=== PATIENT | male | born 1945 | race Caucasian/White ===

== ENCOUNTER 2017-11-30 14:24 | Inpatient (IN) | payer MEDICARE ==
[2017-11-30 15:44] LABS: ABS Basophils 0.1 10^3/ul (0-0.2); ABS Eosinophils 0.1 10^3/ul (0-0.6); ABS Lymphocytes 1.2 10^3/ul (1.0-4.8); ABS Monocytes 0.8 10^3/ul (0-0.8); ABS Neutrophils 5.2 10^3/ul (1.5-7.7); ABS Nucleated RBC 0 10^3/ul; Eosinophil % 1.4 % (0-6); Hematocrit 40 % (42-52); Hemoglobin 13.4 g/dl (14.0-18.0); Lymphocyte % 16.8 % (25-47); Mean Corpuscular HGB Conc 34 g/dl (31-36); Mean Corpuscular Hemoglobin 29 pg (27-31); Mean Corpuscular Volume 86 fL (80-94); Mean Platelet Volume 9 um3 (7.4-10.4); Nucleated Red Blood Cells % 0; Platelet Count 152 10^3/ul (150-450); Red Blood Count 4.65 10^6/ul (4.0-5.4); Red Cell Distribution Width 14 % (10.5-15); White Blood Count 7.4 10^3/ul (3.5-10.8)
--- NOTE | 2017-11-30 16:07 | RAD ---
HISTORY: Chest pain COMPARISONS: None VIEWS: 1: frontal portable view of the chest at 3:05 PM FINDINGS: LINES AND TUBES: None. CARDIOMEDIASTINAL SILHOUETTE: The cardiomediastinal silhouette is normal for portable technique. PLEURA: The costophrenic angles are sharp. No pleural abnormalities are noted. LUNG PARENCHYMA: The lungs are clear. ABDOMEN: The upper abdomen is clear. There is no subphrenic gas. BONES AND SOFT TISSUES: No bone or soft tissue abnormalities are noted. IMPRESSION: NO ACTIVE CARDIOPULMONARY DISEASE.
[2017-11-30 16:11] LABS: EGFR Non-African American 78.2 (>60)
[2017-11-30] MEDS ORDERED: Aspirin Low Dose CHEW TAB* 81 MG PO ONE (16:14)
[2017-11-30] MEDS ORDERED: Heparin for STEMI(*) 5,000 UNITS/ML 1 ML VIAL IV ONE (16:14)
[2017-11-30 16:33] LABS: Urine Appearance Clear; Urine Blood Negative (Negative); Urine Color Straw; Urine Ketones Negative (Negative); Urine Protein Negative (Negative); Urine Specific Gravity 1.004 (1.010-1.030); Urine Urobilinogen Negative (Negative)
[2017-11-30] MEDS ORDERED: Acetaminophen TAB* 325 MG PO PRN (16:37)
[2017-11-30] MEDS ORDERED: Nitroglycerin 0.2 MG/HR PATCH* (5 MG) TRANSDERM ONE (16:44)
[2017-11-30] MEDS ORDERED: Heparin DRIP 25,000 UNITS(*) 25,000 UNITS/500 ML BAG IVPB SCH (16:45)
[2017-11-30] MEDS ORDERED: Nitroglycerin TAB 0.4 MG* 0.4 MG TAB SL PRN (16:49)
[2017-11-30] MEDS ORDERED: Heparin VIAL(*) 5000 UNITS/ML VIAL (FIVE THOUSAND) IV SCH (17:00)
[2017-11-30] MEDS ORDERED: Atorvastatin* 40 MG TAB PO SCH (17:00)
--- NOTE | 2017-11-30 17:44 | ED ---
Stephanie Sheikh Nilda, scribed for Lucian Mcarthur MD on 11/30/17 at 1526 . HPI Chest Pain - HPI Summary HPI Summary: This patient is a 72 year old M presenting to [facility] accompanied by with a chief complaint of constant diffuse chest pain (pressure) for the past two days. The patient rates the pain 6/10 in severity. Symptoms aggravated and alleviated by nothing. Patient denies SOB, N/V, near syncope, and abd pain. Patient states current medications for HTN and Glaucoma. PMHx includes NV (4 years ago, treated with stent in [place]). Patient states this episode of CP is not similar to symptoms from NV in 2013. He notes CP during NV felt more like heart burn. - History of Current Complaint Chief Complaint: EDChestPainROMI Time Seen by Provider: 11/30/17 15:07 Hx Obtained From: Patient Onset/Duration: Started Days Ago, Still Present Timing: Constant Current Severity: Moderate Pain Intensity: 6 Pain Scale Used: 0-10 Numeric Chest Pain Location: Diffuse Chest Pain Radiates: No Character: Pressure/Squeezing Aggravating Factor(s): Nothing Alleviating Factor(s): Nothing Associated Signs and Symptoms: Positive: Other: - denies SOB, N/V, near syncopal feelings, and abd pain - Allergy/Home Medications Allergies/Adverse Reactions: Allergies Allergy/AdvReac Type Severity Reaction Status Date / Time piroxicam Allergy See Comment Verified 11/30/17 17:08 Home Medications: Home Medications Aspirin EC Low Dose* [Ecotrin EC Low Dose 81 MG*] 81 mg PO DAILY 11/30/17 [ History Confirmed 11/30/17] Carvedilol TAB* [Coreg TAB*] 3.125 mg PO BID 11/30/17 [History Confirmed ] Cholecalciferol TAB* [Vitamin D TAB*] 400 unit PO DAILY 11/30/17 [History Confirmed 11/30/17] Dorzolamide/Timolol OPTH (NF) [Cosopt (NF)] 1 drop BOTH EYES BID 11/30/17 [ History Confirmed 11/30/17] Latanoprost 0.005% OPTH (NF) [Xalatan 0.005% OPTH (NF)] 1 drop BOTH EYES BEDTIME 11/30/17 [History Confirmed 11/30/17] PMH/Surg Hx/FS Hx/Imm Hx Endocrine/Hematology History: Denies: Hx Diabetes, Hx Thyroid Disease Cardiovascular History: Reports: Hx Hypertension, Hx Myocardial Infarction Respiratory History: Denies: Hx Asthma, Hx Chronic Obstructive Pulmonary Disease (COPD) GI History: Denies: Hx Ulcer Opthamlomology History: Reports: Hx Glaucoma - Surgical History Surgery Procedure, Year, and Place: cataract surgery Infectious Disease History: No Infectious Disease History: Denies: Hx Hepatitis, Hx Human Immunodeficiency Virus (HIV), Traveled Outside the [place] in Last 30 Days - Family History Known Family History: Positive: Cardiac Disease - NV - Social History Lives: With Family Alcohol Use: Occasionally Substance Use Type: Reports: None Smoking Status (MU): Never Smoked Tobacco Review of Systems Positive: Chest Pain Negative: Shortness Of Breath Negative: Abdominal Pain, Vomiting, Nausea Negative: Syncope All Other Systems Reviewed And Are Negative: Yes Physical Exam - Summary Physical Exam Summary: VITAL SIGNS: Reviewed. GENERAL: Patient is a well-developed and nourished male who is lying comfortable in the stretcher. Patient is not in any acute respiratory distress. HEAD AND FACE: No signs of trauma. No ecchymosis, hematomas or skull depressions. No sinus tenderness. EYES: PERRLA, EOMI x 2, No injected conjunctiva, no nystagmus. EARS: Hearing grossly intact. Ear canals and tympanic membranes are within normal limits. MOUTH: Oropharynx within normal limits. NECK: Supple, trachea is midline, no adenopathy, no JVD, no carotid bruit, no c- spine tenderness, neck with full ROM. CHEST: Symmetric, no tenderness at palpation LUNGS: Clear to auscultation bilaterally. No wheezing or crackles. CVS: Regular rate and rhythm, S1 and S2 present, no murmurs or gallops appreciated. ABDOMEN: Soft, non-tender. No signs of distention. No rebound no guarding, and no masses palpated. Bowel sounds are normal. EXTREMITIES: FROM in all major joints, no edema, no cyanosis or clubbing. NEURO: Alert and oriented x 3. No acute neurological deficits. Speech is normal and follows commands. SKIN: Dry and warm Triage Information Reviewed: Yes Vital Signs On Initial Exam: Initial Vitals Temp Pulse Resp BP Pulse Ox 98.7 F 73 18 147/81 97 11/30/17 14:27 11/30/17 14:27 11/30/17 14:27 11/30/17 14:27 11/30/17 14:27 Vital Signs Reviewed: Yes Diagnostics - Vital Signs Vital Signs Temp Pulse Resp BP Pulse Ox 11/30/17 14:27 98.7 F 73 18 147/81 97 - Laboratory Lab Results: Lab Results 11/30/17 11/30/17 11/30/17 Range/Units 15:37 15:37 15:37 WBC (3.5-10.8) 10^3/ul RBC (4.0-5.4) 10^6/ul Hgb (14.0-18.0) g/dl Hct (42-52) % MCV (80-94) fL MCH (27-31) pg MCHC (31-36) g/dl RDW (10.5-15) % Plt Count (150-450) 10^3/ul MPV (7.4-10.4) um3 Neut % (Auto) (38-83) % Lymph % (Auto) (25-47) % Cassia % (Auto) (1-9) % Eos % (Auto) (0-6) % Baso % (Auto) (0-2) % Absolute Neuts (auto) (1.5-7.7) 10^3/ul Absolute Lymphs (auto) (1.0-4.8) 10^3/ul Absolute Monos (auto) (0-0.8) 10^3/ul Absolute Eos (auto) (0-0.6) 10^3/ul Absolute Basos (auto) (0-0.2) 10^3/ul Absolute Nucleated RBC 10^3/ul Nucleated RBC % APTT 33.3 (26.0-36.3) seconds Sodium 137 (133-145) mmol/L Potassium 4.4 (3.5-5.0) mmol/L Chloride 106 (101-111) mmol/L Carbon Dioxide 27 (22-32) mmol/L Anion Gap 4 (2-11) mmol/L BUN 18 (6-24) mg/dL Creatinine 0.95 (0.67-1.17) mg/dL Est GFR ( Amer) 100.5 (>60) Est GFR (Non-Af Amer) 78.2 (>60) BUN/Creatinine Ratio 18.9 (8-20) Glucose 92 (70-100) mg/dL Calcium 9.1 (8.6-10.3) mg/dL Magnesium 2.4 (1.9-2.7) mg/dL Total Bilirubin 0.80 (0.2-1.0) mg/dL AST 32 (13-39) U/L ALT 27 (7-52) U/L Alkaline Phosphatase 54 (34-104) U/L Total Creatine Kinase 249 H (10-223) U/L CK-MB (CK-2) 14.5 H (0.6-6.3) ng/mL Troponin I 0.76 H* (<0.04) ng/mL B-Natriuretic Peptide 65 ( - 100) pg/mL Total Protein 7.0 (6.4-8.9) g/dL Albumin 3.9 (3.2-5.2) g/dL Globulin 3.1 (2-4) g/dL Albumin/Globulin Ratio 1.3 (1-3) TSH 1.21 (0.34-5.60) mcIU/mL Urine Color Urine Appearance Urine pH (5-9) Ur Specific [place] (1.010-1.030) Urine Protein (Negative) Urine Ketones (Negative) Urine Blood (Negative) Urine Nitrate (Negative) Urine Bilirubin (Negative) Urine Urobilinogen (Negative) Ur Leukocyte Esterase (Negative) Urine Glucose (Negative) 11/30/17 11/30/17 Range/Units 15:37 16:05 WBC 7.4 (3.5-10.8) 10^3/ul RBC 4.65 (4.0-5.4) 10^6/ul Hgb 13.4 L (14.0-18.0) g/dl Hct 40 L (42-52) % MCV 86 (80-94) fL MCH 29 (27-31) pg MCHC 34 (31-36) g/dl RDW 14 (10.5-15) % Plt Count 152 (150-450) 10^3/ul MPV 9 (7.4-10.4) um3 Neut % (Auto) 69.7 (38-83) % Lymph % (Auto) 16.8 L (25-47) % Cassia % (Auto) 11.3 H (1-9) % Eos % (Auto) 1.4 (0-6) % Baso % (Auto) 0.8 (0-2) % Absolute Neuts (auto) 5.2 (1.5-7.7) 10^3/ul Absolute Lymphs (auto) 1.2 (1.0-4.8) 10^3/ul Absolute Monos (auto) 0.8 (0-0.8) 10^3/ul Absolute Eos (auto) 0.1 (0-0.6) 10^3/ul Absolute Basos (auto) 0.1 (0-0.2) 10^3/ul Absolute Nucleated RBC 0 10^3/ul Nucleated RBC % 0 APTT (26.0-36.3) seconds Sodium (133-145) mmol/L Potassium (3.5-5.0) mmol/L Chloride (101-111) mmol/L Carbon Dioxide (22-32) mmol/L Anion Gap (2-11) mmol/L BUN (6-24) mg/dL Creatinine (0.67-1.17) mg/dL Est GFR ( Amer) (>60) Est GFR (Non-Af Amer) (>60) BUN/Creatinine Ratio (8-20) Glucose (70-100) mg/dL Calcium (8.6-10.3) mg/dL Magnesium (1.9-2.7) mg/dL Total Bilirubin (0.2-1.0) mg/dL AST (13-39) U/L ALT (7-52) U/L Alkaline Phosphatase (34-104) U/L Total Creatine Kinase (10-223) U/L CK-MB (CK-2) (0.6-6.3) ng/mL Troponin I (<0.04) ng/mL B-Natriuretic Peptide ( - 100) pg/mL Total Protein (6.4-8.9) g/dL Albumin (3.2-5.2) g/dL Globulin (2-4) g/dL Albumin/Globulin Ratio (1-3) TSH (0.34-5.60) mcIU/mL Urine Color Straw Urine Appearance Clear Urine pH 7.0 (5-9) Ur Specific [place] 1.004 L (1.010-1.030) Urine Protein Negative (Negative) Urine Ketones Negative (Negative) Urine Blood Negative (Negative) Urine Nitrate Negative (Negative) Urine Bilirubin Negative (Negative) Urine Urobilinogen Negative (Negative) Ur Leukocyte Esterase Negative (Negative) Urine Glucose Negative (Negative) Result Diagrams: 11/30/17 15:37 11/30/17 15:37 Lab Statement: Any lab studies that have been ordered have been reviewed, and results considered in the medical decision making process. - Radiology CXR Radiology Interpretation Completed By: Radiologist - No active cardiopulmonary disease. Dr. Mcarthur has reviewed this report. - EKG 1431 Cardiac Rate: NL EKG Rhythm: Sinus Rhythm - 74 bpm Ectopy: PVCs - multiple EKG Interpretation: no ST elevation Chest Pain Course/Dx - Course Assessment/Plan: This patient is a 72 year old M presenting to [facility] accompanied by with a chief complaint of constant diffuse chest pain ( pressure) for the past two days. The patient rates the pain 6/10 in severity. Symptoms aggravated and alleviated by nothing. Patient denies SOB, N/V, near syncope, and abd pain. Patient states current medications for HTN and Glaucoma. PMHx includes NV (4 years ago, treated with stent in [place]). Patient states this episode of CP is not similar to symptoms from NV in 2014. CP during NV felt more like heart burn. An EKG reveals NSR, 74 bpm, multiple PVCs, and no ST elevation. CXR, per radiologist, reveals no active cardiopulmonary disease. Dr. Mcarthur has reviewed this report. Tests results are without significant abnormalities except for slight anemia, CKMB is 14.5, and Trop 0.76. Urine negative for UTI. CXR with no acute pathology. EKG no ST elevations. Therefore I believe the pt has an evolving NSTEMI. Therefore he was given Heparin and aspirin and the CP has significantly subsided. I discussed the case with Dr. Blunt (hospitalist) who accepted the patient for admission. - Chest Pain Differential Diagnosis/HQI/PQRI: Acute NV, ACS, Angina, CHF, Chest Wall, GI Disease, Lower Respiratory Infection - Diagnoses Provider Diagnoses: chest pain rule out nSTEMI - Provider Notifications Discussed Care Of Patient With: Mis Blunt - Hospitalist Time Discussed With Above Provider: 16:11 Instructed by Provider To: Admit As Inpatient - Critical Care Time Critical Care Time: 30-74 min Discharge - Discharge Plan Condition: Stable Disposition: ADMITTED TO [facility] documentation as recorded by the Stephanie palacios Nilda accurately reflects the service I personally performed and the decisions made by , Lucian Mcarthur MD.
[2017-11-30 20:37] LABS: ABS Basophils 0 10^3/ul (0-0.2); ABS Eosinophils 0.1 10^3/ul (0-0.6); ABS Lymphocytes 1.7 10^3/ul (1.0-4.8); ABS Monocytes 0.8 10^3/ul (0-0.8); ABS Neutrophils 4.6 10^3/ul (1.5-7.7); ABS Nucleated RBC 0 10^3/ul; Eosinophil % 1.4 % (0-6); Hematocrit 43 % (42-52); Hemoglobin 14.3 g/dl (14.0-18.0); Lymphocyte % 23.7 % (25-47); Mean Corpuscular HGB Conc 33 g/dl (31-36); Mean Corpuscular Hemoglobin 29 pg (27-31); Mean Corpuscular Volume 87 fL (80-94); Mean Platelet Volume 10 um3 (7.4-10.4); Nucleated Red Blood Cells % 0.1; Platelet Count 163 10^3/ul (150-450); Red Blood Count 4.97 10^6/ul (4.0-5.4); Red Cell Distribution Width 14 % (10.5-15); White Blood Count 7.3 10^3/ul (3.5-10.8)
[2017-11-30 20:48] LABS: EGFR Non-African American 81.1 (>60)
--- NOTE | 2017-11-30 21:18 | HP ---
HISTORY AND PHYSICAL: DATE OF ADMISSION: 11/30/17 TIME OF ADMISSION: 4:45 p.m. CHIEF COMPLAINT: Chest pain. HISTORY OF PRESENT ILLNESS: This is a 72-year-old male with history of coronary artery disease who presents with chest tightness that began while he was snow blowing this morning. He reports having several episodes over the past 2 days of exertional chest pain that results at rest. However, this morning while he was snow blowing his driveway, he had substernal chest tightness that did not resolve on its own, so he came to the emergency department. The pain did not radiate. It was associated with some diaphoresis , but no shortness of breath, nausea, lightheadedness or dizziness. He currently has some chest pain that is much better than when he got to the emergency department. He has not received any nitroglycerin yet. PAST MEDICAL HISTORY: Hyperlipidemia, glaucoma, coronary artery disease, status post stent in 2013 in [place]. HOME MEDICATIONS: 1. Aspirin 81 mg. 2. Atorvastatin 40 mg daily. 3. Coreg 3.125 mg b.i.d. 4. Latanoprost drops in both eyes at bedtime. 5. Dorzolamide/timolol eyedrops in both eyes b.i.d. FAMILY HISTORY: His father had coronary artery disease. His brothers have coronary artery disease and his sister at age 65 of an aortic dissection. 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 He drinks 1 beer per week. REVIEW OF SYSTEMS: Positive for the above. Remaining 12-point review of systems is negative. PHYSICAL EXAMINATION GENERAL: Alert, well appearing man, in no distress. VITAL SIGNS: Temperature 98.7, heart rate 66, pulse ox 93% on room air, blood pressure 132/76. HEENT: Pupils equal, round, and reactive to light. No conjunctival injection. Moist mucosa. NECK: No JVP. No lymphadenopathy. LUNGS: Clear bilaterally. CHEST: Regular rate and rhythm. No murmurs. PMI nondisplaced. No rubs. Chest is nontender to palpation. ABDOMEN: Soft, nontender, nondistended. No guarding or rebound. EXTREMITIES: Distal pulses 2+. Strength is 5/5. DIAGNOSTIC STUDIES/LAB DATA: White blood cell 7.4, hemoglobin 13.4, platelets 152. Sodium 137, potassium 4.4, chloride 106, bicarb 27, BUN 18, creatinine 0.95 , troponin 0.76. Chest x-ray shows no active cardiopulmonary disease. An initial EKG was normal sinus rhythm with some PVCs, so I repeated the EKG, the repeat EKG is normal sinus rhythm at 66 with a normal axis, normal intervals and no ST or T- wave changes. ASSESSMENT AND PLAN: This is a 72-year-old male with history of coronary artery disease presenting with typical chest pain. 1. Acute coronary syndrome with an non-ST elevation myocardial infarction. I have discussed this case with Cardiology. I am making Mr. Herbert n.p.o. at midnight for possible left heart cath tomorrow morning. I believe this is the type 1 non-ST elevation myocardial infarction and we will treat him as such with a heparin drip, aspirin, statin and beta quinton and I am giving him nitroglycerin now until he is chest pain free. 2. Glaucoma. Continue home eyedrops. 3. History of coronary artery disease. Treatment as above. 4. Disposition. Admit to inpatient with the Cardiology consult for possible left heart cath. [id number]/[facility] #: [id number] AURELIANO
[2017-11-30] MEDS: Ticagrelor* 90 MG TAB PO ONE ×2 (21:48→23:06)
[2017-11-30] MEDS: Carvedilol TAB* 3.125 MG PO SCH (21:48)
[2017-11-30] MEDS ORDERED: Metoprolol Tartrate IV* 1 MG/ML 5 ML VIAL ONE (21:53)
[2017-11-30] MEDS ORDERED: Ondansetron INJ* 2 MG/ML VIAL IV ONE (22:17)
[2017-11-30] MEDS ORDERED: Metoprolol Tartrate IV* 1 MG/ML 5 ML VIAL IV ONE (22:17)
--- NOTE | 2017-11-30 22:24 | CONS ---
CC: Hospitalist Service; Dr. Olivier * CARDIOLOGY CONSULTATION: DATE OF CONSULTATION: 11/30/17 HISTORY OF PRESENT ILLNESS: I was asked by hospitalist service to see this 72- year- old male patient with history of coronary artery disease, history of myocardial infarction 4 years ago when he used to live in [place] with stenting to his left circ. He has done well. He relocated recently to the area and he is very active. He had a history of hypertension, hyperlipidemia, but no diabetes mellitus. He had been having on and off episode of some chest pressure and pain for about 2 days. 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 Drove with his to the emergency room. In the emergency room, he was found to have a troponin of 0.76. There is no definite ST elevation in his EKG. There is a borderline low voltage, probably Qs in leads III and aVF and relatively tall R in V1 and V2, but no ST depressions in V1 and V2. By the time I saw him in the emergency room, he is chest pain free. He received a 325 mg chewable aspirin and was started on heparin bolus and then heparin drip. He is chest pain free. He had no nausea, no vomiting, no hematochezia. No jaw pain. No arm pain. No skin rash. No abdominal pain. No syncope. No fever. No chills. No recent illness is appreciated. His review of all other symptoms essentially is negative. PAST MEDICAL HISTORY: Includes history of coronary artery disease, "myocardial infarction," stenting to his left circ, hypertension, hyperlipidemia. PAST SURGICAL HISTORY: Bilateral lenses surgery. MEDICATIONS: His medications as an outpatient include: 1. Coreg. 2. Aspirin. 3. Lipitor. ALLERGIES: He is allergic to FELODIPINE giving him significant allergy according to him. FAMILY HISTORY: He does have family history of coronary artery disease especially in his brothers probably premature. SOCIAL HISTORY: He is . His kids are doing well. He drinks alcohol socially. He used to smoke. He quit many, many years ago. No history of illicit drug use. REVIEW OF SYSTEMS: Review of all other systems essentially is negative. PHYSICAL EXAMINATION: On exam, he is awake, alert, and oriented. He is not in acute distress. Vital Signs: Initially blood pressure 132/76, pulse is 66. He is in sinus, respiratory rate is 15, temperature 98.7. Head exam: Normocephalic, atraumatic head. Ears, Nose, and Throat: Essentially benign. Neck: Supple. JVP is not elevated. No carotid bruits. No masses in the neck are appreciated. Chest: Clear to auscultation. No rales, no wheezes, no added sounds appreciated. Heart: Normal. Regular S1, S2. No added sounds. No gallops, no rubs. Abdomen: Benign, soft. Positive bowel sounds. Extremities: No edema. No cyanosis. No clubbing. Skin exam is normal. Psych: Normal affect and mood. 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 LABORATORY DATA/DIAGNOSTIC STUDIES: White blood cell 7.4, hemoglobin 13.4, hematocrit 40, platelets are 152,000. His PTT 33.3. Sodium 137, potassium 4.4 , chloride 106. BUN 18, creatinine 0.95. LFTs normal. Total CK 249, MB 14.5, troponin 0.76, that was done at 1537. His TSH was 1.21, which is normal. His BNP was 65. His EKGs both of them, two done today in the emergency room as described above. There is also some borderline ST depression in V4, V5. His chest x-ray was reported to have no active cardiopulmonary disease. IMPRESSION: The patient is a 72-year-old male patient with: 1. Ruled in for non-ST elevation myocardial infarction by troponin. He is currently chest pain free and hemodynamically stable. 2. Known history of coronary artery disease with stenting to the left circ about 4 years ago when he used to live in [place]. 3. Abnormal EKG as described. 4. Systemic arterial hypertension. 5. Hyperlipidemia. 6. Unknown current left ventricular systolic function. 7. Very remote history of tobacco consumption. 8. Strong family history of coronary artery disease. PLAN: Currently, the patient is hemodynamically stable in the emergency room. He is chest pain free. I agree with aspirin, heparin, beta-quinton at the present time, nitro if needed. I have discussed him via phone with Dr. Ocasio, the interventional cardiology Services. If he continues to be hemodynamically stable, then he can undergo a left cardiac catheterization tomorrow to evaluate his coronary anatomy and the status of the stent that he had in the left circ years ago. If for any reason he becomes very symptomatic or hemodynamically unstable, then decision will be to take him to the cardiac catheterization lab sooner rather than later. I answered all his concerns or questions up to his satisfaction. I discussed this as well with the hospitalist service and more than half of at least 60-65 plus minutes was in the education and counseling [id number] explaining all of the above discussions making further recommendations accordingly. Thank you very much for asking us to participate in the care of this patient. [id number]/[facility] #: [id number] AURELIANO
[2017-12-01] MEDS: Latanoprost 0.005%* 2.5 ml BTL BOTH EYES SCH ×2 (04:03→20:04)
[2017-12-01] MEDS: DORZOLAMIDE BOTH EYES SCH ×3 (04:03→22:35)
[2017-12-01] MEDS: TIMOLOL BOTH EYES SCH ×3 (04:03→22:35)
[2017-12-01 06:11] LABS: Hematocrit 41 % (42-52); Hemoglobin 13.9 g/dl (14.0-18.0); Mean Corpuscular HGB Conc 34 g/dl (31-36); Mean Corpuscular Hemoglobin 29 pg (27-31); Mean Corpuscular Volume 86 fL (80-94); Mean Platelet Volume 10 um3 (7.4-10.4); Platelet Count 153 10^3/ul (150-450); Red Blood Count 4.77 10^6/ul (4.0-5.4); Red Cell Distribution Width 15 % (10.5-15); White Blood Count 9.9 10^3/ul (3.5-10.8)
[2017-12-01 06:29] LABS: EGFR Non-African American 75.4 (>60)
[2017-12-01 06:49] LABS: ABS Basophils 0.1 10^3/ul (0-0.2); ABS Eosinophils 0.1 10^3/ul (0-0.6); ABS Lymphocytes 1.3 10^3/ul (1.0-4.8); ABS Nucleated RBC 0 10^3/ul; Eosinophil % 0.9 % (0-6); Lymphocyte % 13.4 % (25-47); Nucleated Red Blood Cells % 0.1
[2017-12-01 06:57] LABS: INR 0.97 (0.77-1.02)
[2017-12-01] MEDS ORDERED: NS 0.9% 1000 ML* 1,000 ML IV SCH ×2 (07:00→14:15)
--- NOTE | 2017-12-01 09:15 | PN ---
Subjective Date of Service: 12/01/17 Interval History: No chest pain, cough, SOB. No new c/o. Objective Active Medications: Acetaminophen (Tylenol Tab*) 650 mg PO Q4H PRN PRN Reason: FEVER/PAIN Aspirin (Aspirin Ec Low Dose*) 81 mg PO DAILY [facility] Atorvastatin Calcium (Lipitor*) 40 mg PO 1700 [facility] Last Admin: 11/30/17 17:14 Dose: 40 mg Carvedilol (Coreg Tab*) 3.125 mg PO BID [facility] Last Admin: 11/30/17 21:48 Dose: 3.125 mg Cholecalciferol (Vitamin D Tab*) 400 unit PO DAILY [facility] Dorzolamide/Timolol (Cosopt (Nf)) 1 drop BOTH EYES BID [facility] PRN Reason: Protocol Last Admin: 12/01/17 04:03 Dose: Not Given Heparin Sodium (Porcine) (Heparin Vial(*)) 0 units IV .PER PROTOCOL [facility] PRN Reason: Protocol Last Admin: 11/30/17 22:00 Dose: 4,000 units Sodium Chloride (Ns 0.9% 1000 Ml*) 1,000 mls @ 100 mls/hr IV .per rate [facility] Last Admin: 12/01/17 07:05 Dose: 100 mls/hr Latanoprost (Xalatan 0.005%*) 1 drop BOTH EYES BEDTIME [facility] Last Admin: 12/01/17 04:03 Dose: Not Given Nitroglycerin (Nitroglycerin Tab 0.4 Mg*) 0.4 mg SL Q5M PRN PRN Reason: ANGINA Last Admin: 11/30/17 21:47 Dose: 0.4 mg Ticagrelor (Brilinta*) 90 mg PO Q12H [facility] Vital Signs - 8 hr 12/01/17 12/01/17 12/01/17 01:30 01:45 02:00 Temperature Pulse Rate 77 81 78 Respiratory 18 12 14 Rate Blood Pressure 117/62 113/62 115/70 (mmHg) O2 Sat by Pulse 93 95 96 Oximetry 12/01/17 12/01/17 12/01/17 02:15 02:30 02:45 Temperature Pulse Rate 75 72 74 Respiratory 15 17 13 Rate Blood Pressure 138/79 133/78 147/87 (mmHg) O2 Sat by Pulse 96 97 97 Oximetry 12/01/17 12/01/17 12/01/17 03:00 03:02 03:07 Temperature Pulse Rate 85 79 Respiratory 8 8 Rate Blood Pressure 133/78 (mmHg) O2 Sat by Pulse 96 97 Oximetry 12/01/17 12/01/17 12/01/17 03:17 04:00 05:00 Temperature 99.2 F Pulse Rate 76 76 Respiratory 14 18 16 Rate Blood Pressure 147/82 138/95 (mmHg) O2 Sat by Pulse 98 96 Oximetry 12/01/17 12/01/17 12/01/17 05:57 06:00 08:00 Temperature 98.9 F Pulse Rate 78 Respiratory 17 19 Rate Blood Pressure 132/79 (mmHg) O2 Sat by Pulse 93 Oximetry Oxygen Devices in Use Now: None Appearance: Alert, partly up on ICU bed. In good spirits. Looks comfortable. Eyes: No Scleral Icterus Neck: NL Appearance and Movements; NL JVP, No Thyroid Enlargement, Masses Respiratory: Symmetrical Chest Expansion and Respiratory Effort, Clear to Auscultation, Clear to Percussion Cardiovascular: NL Sounds; No Murmurs; No JVD, RRR, No Edema, - Extremities: No Edema, No Clubbing, Cyanosis, - Skin: No Rash or Ulcers, No Nodules or Sclerosis, - Neurological: Alert and Oriented x 3, NL Sensation Result Diagrams: 12/01/17 05:51 12/01/17 06:00 Additional Lab and Data: Lab Results 11/30/17 11/30/17 11/30/17 Range/Units 15:37 15:37 15:37 WBC (3.5-10.8) 10^3/ul RBC (4.0-5.4) 10^6/ul Hgb (14.0-18.0) g/dl Hct (42-52) % MCV (80-94) fL MCH (27-31) pg MCHC (31-36) g/dl RDW (10.5-15) % Plt Count (150-450) 10^3/ul MPV (7.4-10.4) um3 Neut % (Auto) (38-83) % Lymph % (Auto) (25-47) % Mcminn % (Auto) (1-9) % Eos % (Auto) (0-6) % Baso % (Auto) (0-2) % Absolute Neuts (auto) (1.5-7.7) 10^3/ul Absolute Lymphs (auto) (1.0-4.8) 10^3/ul Absolute Monos (auto) (0-0.8) 10^3/ul Absolute Eos (auto) (0-0.6) 10^3/ul Absolute Basos (auto) (0-0.2) 10^3/ul Absolute Nucleated RBC 10^3/ul Nucleated RBC % APTT 33.3 (26.0-36.3) seconds Sodium 137 (133-145) mmol/L Potassium 4.4 (3.5-5.0) mmol/L Chloride 106 (101-111) mmol/L Carbon Dioxide 27 (22-32) mmol/L Anion Gap 4 (2-11) mmol/L BUN 18 (6-24) mg/dL Creatinine 0.95 (0.67-1.17) mg/dL Est GFR ( Amer) 100.5 (>60) Est GFR (Non-Af Amer) 78.2 (>60) BUN/Creatinine Ratio 18.9 (8-20) Glucose 92 (70-100) mg/dL Calcium 9.1 (8.6-10.3) mg/dL Magnesium 2.4 (1.9-2.7) mg/dL Total Bilirubin 0.80 (0.2-1.0) mg/dL AST 32 (13-39) U/L ALT 27 (7-52) U/L Alkaline Phosphatase 54 (34-104) U/L Total Creatine Kinase 249 H (10-223) U/L CK-MB (CK-2) 14.5 H (0.6-6.3) ng/mL Troponin I 0.76 H* (<0.04) ng/mL B-Natriuretic Peptide 65 ( - 100) pg/mL Total Protein 7.0 (6.4-8.9) g/dL Albumin 3.9 (3.2-5.2) g/dL Globulin 3.1 (2-4) g/dL Albumin/Globulin Ratio 1.3 (1-3) TSH 1.21 (0.34-5.60) mcIU/mL Urine Color Urine Appearance Urine pH (5-9) Ur Specific [place] (1.010-1.030) Urine Protein (Negative) Urine Ketones (Negative) Urine Blood (Negative) Urine Nitrate (Negative) Urine Bilirubin (Negative) Urine Urobilinogen (Negative) Ur Leukocyte Esterase (Negative) Urine Glucose (Negative) 11/30/17 11/30/17 Range/Units 15:37 16:05 WBC 7.4 (3.5-10.8) 10^3/ul RBC 4.65 (4.0-5.4) 10^6/ul Hgb 13.4 L (14.0-18.0) g/dl Hct 40 L (42-52) % MCV 86 (80-94) fL MCH 29 (27-31) pg MCHC 34 (31-36) g/dl RDW 14 (10.5-15) % Plt Count 152 (150-450) 10^3/ul MPV 9 (7.4-10.4) um3 Neut % (Auto) 69.7 (38-83) % Lymph % (Auto) 16.8 L (25-47) % Mcminn % (Auto) 11.3 H (1-9) % Eos % (Auto) 1.4 (0-6) % Baso % (Auto) 0.8 (0-2) % Absolute Neuts (auto) 5.2 (1.5-7.7) 10^3/ul Absolute Lymphs (auto) 1.2 (1.0-4.8) 10^3/ul Absolute Monos (auto) 0.8 (0-0.8) 10^3/ul Absolute Eos (auto) 0.1 (0-0.6) 10^3/ul Absolute Basos (auto) 0.1 (0-0.2) 10^3/ul Absolute Nucleated RBC 0 10^3/ul Nucleated RBC % 0 APTT (26.0-36.3) seconds Sodium (133-145) mmol/L Potassium (3.5-5.0) mmol/L Chloride (101-111) mmol/L Carbon Dioxide (22-32) mmol/L Anion Gap (2-11) mmol/L BUN (6-24) mg/dL Creatinine (0.67-1.17) mg/dL Est GFR ( Amer) (>60) Est GFR (Non-Af Amer) (>60) BUN/Creatinine Ratio (8-20) Glucose (70-100) mg/dL Calcium (8.6-10.3) mg/dL Magnesium (1.9-2.7) mg/dL Total Bilirubin (0.2-1.0) mg/dL AST (13-39) U/L ALT (7-52) U/L Alkaline Phosphatase (34-104) U/L Total Creatine Kinase (10-223) U/L CK-MB (CK-2) (0.6-6.3) ng/mL Troponin I (<0.04) ng/mL B-Natriuretic Peptide ( - 100) pg/mL Total Protein (6.4-8.9) g/dL Albumin (3.2-5.2) g/dL Globulin (2-4) g/dL Albumin/Globulin Ratio (1-3) TSH (0.34-5.60) mcIU/mL Urine Color Straw Urine Appearance Clear Urine pH 7.0 (5-9) Ur Specific [place] 1.004 L (1.010-1.030) Urine Protein Negative (Negative) Urine Ketones Negative (Negative) Urine Blood Negative (Negative) Urine Nitrate Negative (Negative) Urine Bilirubin Negative (Negative) Urine Urobilinogen Negative (Negative) Ur Leukocyte Esterase Negative (Negative) Urine Glucose Negative (Negative) Microbiology and Other Data: Microbiology 11/30/17 21:03 Nasal Screen MRSA (PCR)(SHILPA) - Final Nasal Mrsa Not Detected Assess/Plan/Problems-Billing Assessment: - Patient Problems (1) ACS (acute coronary syndrome) Current Visit: Yes Status: Acute Code(s): I24.9 - ACUTE ISCHEMIC HEART DISEASE, UNSPECIFIED SNOMED Code(s): 429102690 Comment: Prior [place], cardiac stent in [place]. Echo 12/[address] Ocasio to discuss cardiac cath with pt. Continue ASA, statin BB. Pt refused ticagrelor due to an unknown reaction in [place]. 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 Alia Yarbrough (? at [phone]). (2) Hyperlipidemia Current Visit: Yes Status: Acute Code(s): E78.5 - HYPERLIPIDEMIA, UNSPECIFIED SNOMED Code(s): 98298390 Comment: Continue statin. (3) Glaucoma Current Visit: Yes Status: Acute Code(s): H40.9 - UNSPECIFIED GLAUCOMA SNOMED Code(s): 84048222 Comment: Continue 2 home meds.
[2017-12-01] MEDS: Cholecalciferol TAB* 400 UNIT PO SCH (09:49)
[2017-12-01] MEDS: Carvedilol TAB* 3.125 MG PO SCH ×2 (09:49→20:04)
[2017-12-01] MEDS: Aspirin EC Low Dose* 81 MG TAB.EC PO SCH (09:49)
[2017-12-01] MEDS: Ticagrelor* 90 MG TAB PO SCH ×2 (09:55→20:04)
[2017-12-01] MEDS ORDERED: Midazolam* 1 MG/ML 10 ML VIAL (10 MG) ONE (11:45)
[2017-12-01] MEDS ORDERED: Heparin(*) 1000 UNIT/ML 10 ML VIAL CATH LAB IV ONE (11:45)
[2017-12-01] MEDS ORDERED: fentaNYL* 50 MCG/ML 2 ML VIAL (100 MCG VIAL) ONE ×2 (11:45→12:36)
[2017-12-01] MEDS ORDERED: Lidocaine 1% INJ* 10 MG/ML 30 ML SDV ONE (11:46)
[2017-12-01] MEDS ORDERED: nitroGLYCERIN DRIP* 25,000 MCG/250 ML BTL ONE (11:46)
[2017-12-01] MEDS ORDERED: Heparin 2 UNITS/ML IVPREMIX* 2,000 ML IV ONE (11:46)
[2017-12-01] MEDS ORDERED: Iohexol 350 (CONTRAST) 200 ML MDV IV ONE (11:46)
[2017-12-01] MEDS ORDERED: VERAPAMIL 2.5 MG/ML 2 ML VIAL ** 5 mg/2 ml ONE (11:48)
[2017-12-01] MEDS ORDERED: Ticagrelor* 90 MG TAB PO ONE (12:45)
--- NOTE | 2017-12-01 13:11 | ECHO ---
Patient: VIKTOR PEREZ [facility] Rec#: [id number] : 1945 Date: 12/01/2017 Age: 72y Height: 180.34 cm / 71.0 in Weight: 83.91 kg / 184.9 lbs Sex: M BSA: 2.04 Room#: ICU-2 Admit Date#: 11/30/2017 Type: Inpatient Referring: Mis Blunt MD Reading: Carlos Perkins MD Manager Battery: Na Lizarraga RDCS CC: Nick David MD Transthoracic Echocardiogram Indication: NSTEMI, ACS BP: 132/79 HR: 59 Rhythm: NSR with PVCs Findings History: CAD, CT s/p PCI, HTN, HLD, abnormal EKG. Technical Comments: The study quality is fair. The study is technically limited due to poor parasternal windows. Completed at 0922. Left Ventricle: The left ventricular chamber size is normal. Septal wall hypertrophy is observed.C/W A SIGMOID SEPTUM. There is increased basal septal hypertrophy noted without evidence of an increased gradient across the left ventricular outflow tract. There is a focal wall motion abnormality present. There is normal left ventricular systolic function. The estimated ejection fraction is 55-60%. Abnormal left ventricular diastolic function is observed. Abnormal left ventricular diastolic filling is observed, consistent with impaired relaxation. The basal inferolateral, basal inferior, mid inferolateral, and mid inferior wall segments are hypokinetic (score 2). Overall wallmotion score index is 1.25 Left Atrium: The left atrium is mildly dilated. Right Ventricle: The right ventricle wall thickness is mildly increased. The right ventricular cavity size is normal. The right ventricular global systolic function is mildly reduced. Right Atrium: The right atrial cavity size is normal. Aortic Valve: The aortic valve is trileaflet. There is no evidence of aortic valve thickening. There is a trace of aortic regurgitation. There is no evidence of aortic stenosis. Mitral Valve: The mitral valve leaflets are mildly thickened. There is mild to moderate mitral regurgitation. There is no evidence of mitral stenosis. Tricuspid Valve: The tricuspid valve leaflets are normal. There is trace to mild tricuspid regurgitation. The right ventricular systolic pressure is estimated at 21 mmHg. No pulmonary hypertension is noted. There is no tricuspid stenosis. Pulmonic Valve: The pulmonic valve appears normal. There is no evidence of pulmonic regurgitation. There is no pulmonic stenosis. Pericardium: There is no pericardial effusion. A pericardial fat pad is visualized. Aorta: There is no dilatation of the ascending aorta. There is no dilatation of the aortic arch. There is mild dilatation of the aortic root. Pulmonary Artery: The main pulmonary artery appears normal. Venous: The inferior vena cava appears normal in size. There is a greater than 50% respiratory change in the inferior vena cava dimension. Summary: There was not any prior study for comparison. Conclusions The study quality is fair. There is increased basal septal hypertrophy noted without evidence of an increased gradient across the left ventricular outflow tract. There is a focal wall motion abnormality present with inferobasal hypokinesis as above. The estimated ejection fraction is 55-60%. Abnormal left ventricular diastolic filling is observed, consistent with impaired relaxation. The left atrium is mildly dilated. The right ventricle wall thickness is mildly increased. The right ventricular global systolic function is mildly reduced. There is mild to moderate mitral regurgitation. There is trace to mild tricuspid regurgitation. There is mild dilatation of the aortic root. Measurements Name Value Normal Range RVIDd (AP) 2D 3.7 cm (0.9 - 2.6) RVDdMajor (2D) 3.8 cm (2.2 - 4.4) RVAW (2D) 0.6 cm (0.2 - 0.5) RAd ISD 4CH 4.6 cm (3.4 - 4.9) RA (A4C)W 4.3 cm (2.9 - 4.6) IVSd (2D) 1.2 cm (0.6 - 1) LVPWd (2D) 1 cm (0.6 - 1) LVIDd (2D) 4.4 cm (3.6 - 5.4) LVIDs (2D) 3.6 cm - LV FS (2D) 17 % (25 - 45) Aortic Annulus 2.1 cm (1.4 - 2.6) Ao root diameter (2D) 3.7 cm (2.1 - 3.5) Ascending Ao 3.2 cm (2.1 - 3.4) Aortic arch 2.9 cm (1.8 - 3.4) LA dimension (AP) 2D 4.1 cm (2.3 - 3.8) LAd ISD 4CH 5.1 cm (2.9 - 5.3) LA ISD 4CH W 4.1 cm (2.5 - 4.5) Name Value Normal Range LA ESV SP 4CH (A/L) 52 ml - LA ESV SP 2CH (A/L) 78 ml - LA ESV BP (A/L) 66 ml - LA ESV BP (A/L) index 32 ml/m2 - LA ESV SP 4CH (MOD) 48 ml - LA ESV SP 2CH (MOD) 74 ml - Name Value Normal Range MV E-wave Vmax 0.68 m/sec - MV deceleration time 181.58 msec - MV A-wave Vmax 0.85 m/sec - MV E:A ratio 0.8 ratio - LV septal e' Vmax 0.08 m/sec - LV lateral e' Vmax 0.08 m/sec - LV E:e' septal ratio 8.5 ratio - LV E:e' lateral ratio 8.5 ratio - Name Value Normal Range AV Vmax 1.1 m/sec - AV VTI 22.15 cm - AV peak gradient 4.61 mmHg - AV mean gradient 2.23 mmHg - LVOT Vmax 0.84 m/sec - LVOT VTI 17.71 cm - LVOT peak gradient 2.85 mmHg - LVOT mean gradient 1.53 mmHg - DIGNA Vmax 0.55 m/sec - Name Value Normal Range TR Vmax 2.1 m/sec - TR peak gradient 18 mmHg - RAP 3 mmHg - RVSP 21 mmHg - IVC diameter 2 cm - Name Value Normal Range PV Vmax 0.7 m/sec - PV peak gradient 1.96 mmHg - Wallmotion BAS Normal BA Normal BAL Normal CROW Hypokinetic BI Hypokinetic BIS Normal MAS Normal MA Normal MAL Normal MIL Hypokinetic CT Hypokinetic MIS Normal Normal AA Normal AL Normal AI Normal APEX Normal
[2017-12-01] MEDS ORDERED: Nitroglycerin TAB 0.4 MG* 0.4 MG TAB SL PRN (14:09)
[2017-12-01] MEDS: Lisinopril TAB* 5 MG PO SCH (16:37)
[2017-12-01] MEDS: Atorvastatin* 80 MG TAB PO SCH (16:37)
[2017-12-02 06:45] LABS: EGFR Non-African American 81.1 (>60)
--- NOTE | 2017-12-02 08:33 | PN ---
Subjective Date of Service: 12/02/17 Interval History: Some abnormal breathing sensation after ticagrelor, resolved with some oral caffeine. No chest pain, cough. Objective Active Medications: Acetaminophen (Tylenol Tab*) 650 mg PO Q4H PRN PRN Reason: FEVER/PAIN Aspirin (Aspirin Ec Low Dose*) 81 mg PO DAILY [facility] Last Admin: 12/01/17 09:49 Dose: 81 mg Atorvastatin Calcium (Lipitor*) 80 mg PO 1700 [facility] Last Admin: 12/01/17 16:37 Dose: 80 mg Carvedilol (Coreg Tab*) 3.125 mg PO BID [facility] Last Admin: 12/01/17 20:04 Dose: 3.125 mg Cholecalciferol (Vitamin D Tab*) 400 unit PO DAILY [facility] Last Admin: 12/01/17 09:49 Dose: 400 unit Dorzolamide/Timolol (Cosopt (Nf)) 1 drop BOTH EYES BID [facility] PRN Reason: Protocol Last Admin: 12/01/17 22:35 Dose: 1 drop Latanoprost (Xalatan 0.005%*) 1 drop BOTH EYES BEDTIME [facility] Last Admin: 12/01/17 20:04 Dose: 1 drop Lisinopril (Prinivil Tab*) 5 mg PO DAILY [facility] Last Admin: 12/01/17 16:37 Dose: 5 mg Nitroglycerin (Nitroglycerin Tab 0.4 Mg*) 0.4 mg SL Q5M PRN PRN Reason: ANGINA Last Admin: 11/30/17 21:47 Dose: 0.4 mg Ticagrelor (Brilinta*) 90 mg PO Q12H [facility] Last Admin: 12/01/17 20:04 Dose: 90 mg Vital Signs - 8 hr 12/02/17 12/02/17 12/02/17 01:00 01:31 02:00 Temperature Pulse Rate 66 66 64 Respiratory 14 23 18 Rate Blood Pressure 107/65 88/45 108/67 (mmHg) O2 Sat by Pulse 97 97 96 Oximetry 12/02/17 12/02/17 12/02/17 03:00 03:01 03:30 Temperature Pulse Rate 64 63 70 Respiratory 17 15 15 Rate Blood Pressure 84/55 113/55 (mmHg) O2 Sat by Pulse 96 95 95 Oximetry 12/02/17 12/02/17 12/02/17 03:51 04:00 04:30 Temperature 99.4 F Pulse Rate 65 68 Respiratory 14 24 Rate Blood Pressure 90/48 107/66 (mmHg) O2 Sat by Pulse 96 97 Oximetry 12/02/17 12/02/17 12/02/17 05:00 05:30 05:52 Temperature Pulse Rate 63 73 Respiratory 13 21 20 Rate Blood Pressure 101/51 119/70 (mmHg) O2 Sat by Pulse 96 96 Oximetry 12/02/17 12/02/17 06:00 07:49 Temperature 99.4 F Pulse Rate 70 Respiratory 23 Rate Blood Pressure 118/71 (mmHg) O2 Sat by Pulse 96 Oximetry Oxygen Devices in Use Now: None Appearance: Alert, sitting up in ICU bed. In good spirits. Looks comfortable. Neck: NL Appearance and Movements; NL JVP, No Thyroid Enlargement, Masses Respiratory: Symmetrical Chest Expansion and Respiratory Effort, Clear to Auscultation, Clear to Percussion Cardiovascular: NL Sounds; No Murmurs; No JVD, RRR, No Edema, - Extremities: No Edema, No Clubbing, Cyanosis, - Skin: No Rash or Ulcers, No Nodules or Sclerosis, - Neurological: Alert and Oriented x 3, NL Sensation Result Diagrams: 12/01/17 05:51 12/02/17 05:47 Additional Lab and Data: Lab Results 11/30/17 11/30/17 11/30/17 Range/Units 15:37 15:37 15:37 WBC (3.5-10.8) 10^3/ul RBC (4.0-5.4) 10^6/ul Hgb (14.0-18.0) g/dl Hct (42-52) % MCV (80-94) fL MCH (27-31) pg MCHC (31-36) g/dl RDW (10.5-15) % Plt Count (150-450) 10^3/ul MPV (7.4-10.4) um3 Neut % (Auto) (38-83) % Lymph % (Auto) (25-47) % Hughes % (Auto) (1-9) % Eos % (Auto) (0-6) % Baso % (Auto) (0-2) % Absolute Neuts (auto) (1.5-7.7) 10^3/ul Absolute Lymphs (auto) (1.0-4.8) 10^3/ul Absolute Monos (auto) (0-0.8) 10^3/ul Absolute Eos (auto) (0-0.6) 10^3/ul Absolute Basos (auto) (0-0.2) 10^3/ul Absolute Nucleated RBC 10^3/ul Nucleated RBC % APTT 33.3 (26.0-36.3) seconds Sodium 137 (133-145) mmol/L Potassium 4.4 (3.5-5.0) mmol/L Chloride 106 (101-111) mmol/L Carbon Dioxide 27 (22-32) mmol/L Anion Gap 4 (2-11) mmol/L BUN 18 (6-24) mg/dL Creatinine 0.95 (0.67-1.17) mg/dL Est GFR ( Amer) 100.5 (>60) Est GFR (Non-Af Amer) 78.2 (>60) BUN/Creatinine Ratio 18.9 (8-20) Glucose 92 (70-100) mg/dL Calcium 9.1 (8.6-10.3) mg/dL Magnesium 2.4 (1.9-2.7) mg/dL Total Bilirubin 0.80 (0.2-1.0) mg/dL AST 32 (13-39) U/L ALT 27 (7-52) U/L Alkaline Phosphatase 54 (34-104) U/L Total Creatine Kinase 249 H (10-223) U/L CK-MB (CK-2) 14.5 H (0.6-6.3) ng/mL Troponin I 0.76 H* (<0.04) ng/mL B-Natriuretic Peptide 65 ( - 100) pg/mL Total Protein 7.0 (6.4-8.9) g/dL Albumin 3.9 (3.2-5.2) g/dL Globulin 3.1 (2-4) g/dL Albumin/Globulin Ratio 1.3 (1-3) TSH 1.21 (0.34-5.60) mcIU/mL Urine Color Urine Appearance Urine pH (5-9) Ur Specific [place] (1.010-1.030) Urine Protein (Negative) Urine Ketones (Negative) Urine Blood (Negative) Urine Nitrate (Negative) Urine Bilirubin (Negative) Urine Urobilinogen (Negative) Ur Leukocyte Esterase (Negative) Urine Glucose (Negative) 11/30/17 11/30/17 Range/Units 15:37 16:05 WBC 7.4 (3.5-10.8) 10^3/ul RBC 4.65 (4.0-5.4) 10^6/ul Hgb 13.4 L (14.0-18.0) g/dl Hct 40 L (42-52) % MCV 86 (80-94) fL MCH 29 (27-31) pg MCHC 34 (31-36) g/dl RDW 14 (10.5-15) % Plt Count 152 (150-450) 10^3/ul MPV 9 (7.4-10.4) um3 Neut % (Auto) 69.7 (38-83) % Lymph % (Auto) 16.8 L (25-47) % Hughes % (Auto) 11.3 H (1-9) % Eos % (Auto) 1.4 (0-6) % Baso % (Auto) 0.8 (0-2) % Absolute Neuts (auto) 5.2 (1.5-7.7) 10^3/ul Absolute Lymphs (auto) 1.2 (1.0-4.8) 10^3/ul Absolute Monos (auto) 0.8 (0-0.8) 10^3/ul Absolute Eos (auto) 0.1 (0-0.6) 10^3/ul Absolute Basos (auto) 0.1 (0-0.2) 10^3/ul Absolute Nucleated RBC 0 10^3/ul Nucleated RBC % 0 APTT (26.0-36.3) seconds Sodium (133-145) mmol/L Potassium (3.5-5.0) mmol/L Chloride (101-111) mmol/L Carbon Dioxide (22-32) mmol/L Anion Gap (2-11) mmol/L BUN (6-24) mg/dL Creatinine (0.67-1.17) mg/dL Est GFR ( Amer) (>60) Est GFR (Non-Af Amer) (>60) BUN/Creatinine Ratio (8-20) Glucose (70-100) mg/dL Calcium (8.6-10.3) mg/dL Magnesium (1.9-2.7) mg/dL Total Bilirubin (0.2-1.0) mg/dL AST (13-39) U/L ALT (7-52) U/L Alkaline Phosphatase (34-104) U/L Total Creatine Kinase (10-223) U/L CK-MB (CK-2) (0.6-6.3) ng/mL Troponin I (<0.04) ng/mL B-Natriuretic Peptide ( - 100) pg/mL Total Protein (6.4-8.9) g/dL Albumin (3.2-5.2) g/dL Globulin (2-4) g/dL Albumin/Globulin Ratio (1-3) TSH (0.34-5.60) mcIU/mL Urine Color Straw Urine Appearance Clear Urine pH 7.0 (5-9) Ur Specific [place] 1.004 L (1.010-1.030) Urine Protein Negative (Negative) Urine Ketones Negative (Negative) Urine Blood Negative (Negative) Urine Nitrate Negative (Negative) Urine Bilirubin Negative (Negative) Urine Urobilinogen Negative (Negative) Ur Leukocyte Esterase Negative (Negative) Urine Glucose Negative (Negative) Microbiology and Other Data: Microbiology 11/30/17 21:03 Nasal Screen MRSA (PCR)(SHILPA) - Final Nasal Mrsa Not Detected Assess/Plan/Problems-Billing Assessment: - Patient Problems (1) ACS (acute coronary syndrome) Current Visit: Yes Status: Acute Code(s): I24.9 - ACUTE ISCHEMIC HEART DISEASE, UNSPECIFIED SNOMED Code(s): 223757772 Comment: Prior [place], cardiac stent in [place]. Echo 12/[address] Ocasio inplanted 2 stents 12/01/17. Continue ASA, statin BB, ticagrelor. Pt advised that eventually the abnormal breathing sensation will not come with the ticagrelor. (2) Hyperlipidemia Current Visit: Yes Status: Acute Code(s): E78.5 - HYPERLIPIDEMIA, UNSPECIFIED SNOMED Code(s): 44417819 Comment: Continue statin. (3) Glaucoma Current Visit: Yes Status: Acute Code(s): H40.9 - UNSPECIFIED GLAUCOMA SNOMED Code(s): 82543870 Comment: Continue 2 home meds.
--- NOTE | 2017-12-02 08:35 | CATH ---
CC: Dr. David; Dr. Olivier STENT REPORT: DATE OF PROCEDURE: 12/01/17 PRIMARY CARE PHYSICIAN: Dr. David. PROPOSAL REVIEW ANALYST: Dr. Olivier. PROCEDURES: Right radial artery access, bilateral selective coronary cineangiography, stent placemen t circumflex 2.5 x 28 Synergy drug-eluting stent, scoring balloon angioplasty, diagonal branch 2.5 mm stent placement LAD, 2.75 x 15 Xience drug-eluting stent. HISTORY: A 72-year-old male with prior circumflex distribution infarction 4 years ago, in [facility] a 2.5 x 24 mm drug-eluting stent placed in the circumflex, post dilated to 2.5 mm. At that time, he had non-critical left-sided disease. He was now admitted with non-ST elevation infarct with trans ient lateral J-point and ST depression, and an inferolateral wall motion abnormality on echo. PROCEDURE ACCESS: Right radial artery sheath 6F slender. MEDICATIONS: 1. Subcu lidocaine. 2. IV Versed. 3. IV fentanyl. 4. Heparin 3000 units. 5. Verapamil 3 mg. 6. Nitroglycerin 300 mcg IA. DIAGNOSTIC CATHETERS: 5F TIG4, 5FL3.5. PROCEDURAL MEDICATIONS: 1. Brilinta 180 mg p.o. 2. Heparin 4000 units IV. GUIDING CATHETER: 6FVL 3.5. Two 14 BMW wires were used, one in the diagonal and one in the LAD. Th e circumflex was revascularized first using a 14 BMW wire, predilatation with a 2.5 mm balloon, after which the in-stent restenosis was restented with a 2.5 x 28 Synergy drug-eluting stent and post dila delores with a 2.5 x 20 NC balloon to 18 atmospheres for 30 seconds x2. The diagonal was then predilated with a 2.5 x 10 mm scoring balloon to 8 atmospheres. A 2.75 x 15 Xience Alpine drug-eluting stent w as then deployed in the LAD straddling the diagonal origin over the BMW wire, 10 atmospheres 8 second s. A 2.75 x 15 NC emerge balloon was then positioned in the LAD, a 2.5 x 12 NC emerge in the diagona l, and a kissing inflation was performed to 12 atmospheres for 20 seconds. A hemostatic band was use d for hemostasis. HEMODYNAMICS: Initial BP 86/55, final 102/64. ANGIOGRAPHY: RCA: The RCA is a very large, dominant, with a large PDA, a small posterolateral which has non-flow limiting luminal irregularity, and ends with a moderate bifurcated posterolateral. Ther e is a distal posterolateral to circumflex OM, right to left collateral. Left Main: The left main is normal. LAD: The LAD is moderate, extends to the apex. It has a moderate first diagonal which has less than 30% proximal stenosis, followed by a moderate second diagonal which has ostial 75% stenosis, the LAD has a gradually tapering stenosis beginning before the second diagonal, is approximately a 70% steno sis, distal LAD has luminal irregularity. Circumflex: The circumflex is non-dominant, small to moderate, is occluded after a small marginal br anch, at the proximal end of a previously placed stent. Distal circumflex consists of a marginal and a posterolateral. After revascularization of the circumflex, there is no residual stenosis, flow is JUAN CARLOS III. There is no dissection. After LAD diagonal bifurcation intervention and kissing balloon inflation, the diagonal has a 30% ost ial residual stenosis, the LAD has no residual stenosis, has a stepdown. Flow is JUAN CARLOS III. The seco nd diagonal has a large distribution, almost like a parallel LAD. 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 Moderately severe LAD diagonal bifurcation disease, Stone 011. Excellent angiographic result with drug-eluting stent placement in the circumflex, LAD, and scoring balloon angioplasty of t he ostium of the diagonal. Successful right radial artery access. [id number]/[facility] #: [id number]
[2017-12-02] MEDS: Aspirin EC Low Dose* 81 MG TAB.EC PO SCH (09:22)
[2017-12-02] MEDS: Ticagrelor* 90 MG TAB PO SCH ×2 (09:22→21:15)
[2017-12-02] MEDS: Cholecalciferol TAB* 400 UNIT PO SCH (09:22)
[2017-12-02] MEDS: Lisinopril TAB* 5 MG PO SCH (09:22)
[2017-12-02] MEDS: Carvedilol TAB* 3.125 MG PO SCH ×2 (09:23→21:19)
[2017-12-02] MEDS: TIMOLOL BOTH EYES SCH ×2 (09:54→21:16)
[2017-12-02] MEDS: DORZOLAMIDE BOTH EYES SCH ×2 (09:54→21:16)
[2017-12-02] MEDS: Atorvastatin* 80 MG TAB PO SCH (16:02)
[2017-12-02] MEDS: Latanoprost 0.005%* 2.5 ml BTL BOTH EYES SCH (21:16)
[2017-12-03] MEDS: Carvedilol TAB* 3.125 MG PO SCH (08:18)
[2017-12-03] MEDS: Cholecalciferol TAB* 400 UNIT PO SCH (08:18)
[2017-12-03] MEDS: Lisinopril TAB* 5 MG PO SCH (08:18)
[2017-12-03] MEDS: Aspirin EC Low Dose* 81 MG TAB.EC PO SCH (08:18)
[2017-12-03] MEDS: Ticagrelor* 90 MG TAB PO SCH (08:18)
[2017-12-03] MEDS: DORZOLAMIDE BOTH EYES SCH (08:21)
[2017-12-03] MEDS: TIMOLOL BOTH EYES SCH (08:21)
[2017-12-03 08:27] VITALS: BP 120/71
--- NOTE | 2017-12-03 08:34 | PN ---
Progress Note - Progress Note Date of Service: 12/03/17 Note: Time spent on discharge 40 minutes.
--- NOTE | 2017-12-04 00:08 | DS ---
CC: Nick David MD; Saige Ocasio MD DISCHARGE SUMMARY: DATE OF ADMISSION: DATE OF DISCHARGE: 12/03/17 HISTORY OF PRESENT ILLNESS: A 72-year-old man presenting with chest tightness while he was using a s now blower on the morning of admission. He had also had an exertional chest pain for several episode s over the prior 2 days. On the morning of admission, the chest pain did not resolve with rest and h e came to the emergency room. There was some diaphoresis. The rest of the history is detailed in th e admission note. I note the patient had a nitroglycerin while at home which he did not use. He said it was 4 years ol d. He was not aware that it would not be effective, but in any event, he did not try using it. He was found to have an non-ST elevation myocardial infarction. He was seen in consult by Dr. Audrey ortega, Dr. Ocasio who performed cardiac catheterization on 12/01/17. He re-stented an in-stent stenosi s and put a new second stent in the left anterior coronary artery. The patient did well in the hospital. His pain resolved. He was really asymptomatic. His troponin peaked at about 10. He underwent an echocardiogram on 12/01/17, which showed an ejection fraction of 55% to 60%. There was abnormal left ventricular diastolic function. There was hypokinesis of the b ksenia inferolateral, basal inferior, and mid inferolateral and mid inferior wall segments. The patient had lisinopril added to his medication regimen for his blood pressure. His atorvastatin d ose was increased from 40 to 80 mg daily. He was put on ticagrelor. For the first few doses, he had a little dyspnea, but this resolved after continued administration. FINAL DIAGNOSES: 1. Acute coronary syndrome. 2. Hyperlipidemia. 3. Glaucoma. DISCHARGE MEDICATIONS: 1. Atorvastatin 80 mg daily. 2. Lisinopril 5 mg daily. 3. Nitroglycerin 0.4 mg sublingual every 5 minutes p.r.n. 4. Ticagrelor 90 mg b.i.d. 5. Acetaminophen 650 mg every 4 hours p.r.n. 6. Aspirin 81 mg daily. 7. Latanoprost 0.005% 1 drop both eyes h.s. 8. Dorzolamide timolol 1 drop both eyes b.i.d. 9. Carvedilol 3.125 mg b.i.d. 10. Vitamin D 400 units daily. [id number]/[facility] #: [id number]
== END 2017-12-03 11:30 | disposition home or self-care (01) | DRG 246 ==
LOC: ED 14:24 → MEDTELE 16:37 → ICU 16:40 → MEDTELE 12-02 11:46
PROVIDERS: ADMIT Internal Medicine; ATTEND Internal Medicine
PROC: 027135Z Dilation of Coronary Artery, Two Arteries with Two Drug-eluting Intraluminal Devices, Percutaneous Approach (ICD-10-PCS; 2017-12-01)
PROC: 02703Z6 Dilation of Coronary Artery, One Artery, Bifurcation, Percutaneous Approach (ICD-10-PCS; 2017-12-01)
PROC: B2111ZZ Fluoroscopy of Multiple Coronary Arteries using Low Osmolar Contrast (ICD-10-PCS; principal; 2017-12-01 12:00)
DX: T82.855A Stenosis of coronary artery stent, initial encounter (principal); I21.A9 Other myocardial infarction type; E78.5 Hyperlipidemia, unspecified; H40.9 Unspecified glaucoma; I25.10 Atherosclerotic heart disease of native coronary artery without angina pectoris; Y71.3 Surgical instruments, materials and cardiovascular devices (including sutures) associated with adverse incidents; Y92.009 Unspecified place in unspecified non-institutional (private) residence as the place of occurrence of the external cause; I10 Essential (primary) hypertension; Z88.6 Allergy status to analgesic agent; I25.2 Old myocardial infarction; Z82.49 Family history of ischemic heart disease and other diseases of the circulatory system; Z72.89 Other problems related to lifestyle; Z95.5 Presence of coronary angioplasty implant and graft; Z98.42 Cataract extraction status, left eye; Z98.41 Cataract extraction status, right eye; Z88.8 Allergy status to other drugs, medicaments and biological substances; Z87.891 Personal history of nicotine dependence; Z79.82 Long term (current) use of aspirin; Z79.02 Long term (current) use of antithrombotics/antiplatelets
CPT/HCPCS: 36415; 71045; 80048; 80053; 80061; 81003; 82550; 82553; 82565; 83036; 83735; 83880; 84443; 84484; 84520; 85025; 85610; 85730; 87641; 93005; 93306; 93454; 99156; 99157; 99283; A9270-GY; C1725; C1769; C1876; C1887; C9600-LC; C9601-LD; J1644; J2250; J3010; J3490